=== PATIENT | female | born 1970 | race Two or more races ===

== ENCOUNTER 2022-06-14 12:45 | Inpatient (IN) | payer OTHER ==
[~2022-06-14] VITALS: Ht 152.4 cm; Wt 67.1 kg
[2022-06-14] MEDS ORDERED: PROMETRIUM200 MG PO (16:08)
[2022-06-14] MEDS ORDERED: ZYRTEC10 M3 PO (16:08)
[2022-06-14] MEDS ORDERED: SYNTHROID50 MCG PO (16:08)
[2022-06-14] MEDS ORDERED: LIPITOR20 MG PO (16:08)
[2022-06-20] MEDS ORDERED: HYDROCHLOROTH12.5 MG (09:00)
[2022-06-20] MEDS ORDERED: PHENTERMINE HCL15 MG (09:00)
[2022-06-20] MEDS ORDERED: AZELASTIN-FLUTI23 GM (09:00)
[2022-06-20] MEDS ORDERED: VITAMIN D3250 MCG (09:00)
[2022-06-20] MEDS ORDERED: NP THYROID15 MG (09:00)
[2022-06-20] MEDS ORDERED: DIETHYLPROPION75 MG (09:00)
[2022-06-20] MEDS ORDERED: TOPIRAMATE25 MG (09:00)
== END 2022-06-24 22:28 | disposition home or self-care (01) | DRG 742 ==
LOC: SURG 06-20 07:00 → O/R 06-20 07:06 → SURG 06-20 12:45 → OB/GYN 06-20 14:42 → SURH 06-20 16:40
PROVIDERS: ADMIT Specialist; ATTEND Specialist
PROC: 0UT70ZZ Resection of Bilateral Fallopian Tubes, Open Approach (ICD-10-PCS; 2022-06-20)
PROC: 0UT20ZZ Resection of Bilateral Ovaries, Open Approach (ICD-10-PCS; 2022-06-20)
PROC: 0DQ80ZZ Repair Small Intestine, Open Approach (ICD-10-PCS; 2022-06-20)
PROC: 0UT90ZZ Resection of Uterus, Open Approach (ICD-10-PCS; principal; 2022-06-20 07:00)
DX: D25.1 Intramural leiomyoma of uterus (principal); D62 Acute posthemorrhagic anemia; K91.72 Accidental puncture and laceration of a digestive system organ or structure during other procedure; N80.0 Endometriosis of uterus; D25.0 Submucous leiomyoma of uterus; N72 Inflammatory disease of cervix uteri; N84.0 Polyp of corpus uteri; N83.311 Acquired atrophy of right ovary; N80.1 Endometriosis of ovary; Z20.822 Contact with and (suspected) exposure to COVID-19; G89.18 Other acute postprocedural pain

== ENCOUNTER 2023-12-01 08:11 | Emergency (ER) | payer OTHER ==
[~2023-12-01] VITALS: Ht 152.4 cm; Wt 68.0 kg
[~2023-12-01 08:11] MED LIST: AZELASTIN-FLUTI23 GM; DIETHYLPROPION75 MG; HYDROCHLOROTH12.5 MG; LIPITOR20 MG PO; NP THYROID15 MG; PHENTERMINE HCL15 MG; PROMETRIUM200 MG PO; SYNTHROID50 MCG PO; TOPIRAMATE25 MG; VITAMIN D3250 MCG; ZYRTEC10 M3 PO
[2023-12-01] MEDS ORDERED: CRESTOR10 MG PO (08:42)
[2023-12-01] MEDS ORDERED: COZAAR25 MG PO (08:42)
[2023-12-01] MEDS ORDERED: SYNTHROID112 MCG PO (08:46)
[2023-12-01] MEDS ORDERED: 0.9 % SODIUM CHLORIDE 1,000 ML IV SCH (09:15)
[2023-12-01] MEDS ORDERED: KETOROLAC TROMETHAMINE 30 MG VIAL IV ONE (09:15)
[2023-12-01 09:45] LABS: HEMATOCRIT 38.2 % (36.0-45.00); HEMOGLOBIN 13.2 g/dL (12.0-15.00); MEAN CELL VOLUME 90.2 fL (80.00-100.00); MEAN CORPUSCULAR HEMOGLOBIN 31.3 pg (27.00-32.0); MEAN CORPUSCULAR HGB CONC 34.7 g/dl (32.0-36.0); PLATELET COUNT 283 K/uL (150-450); RED BLOOD COUNT 4.23 M/uL (4.00-6.00); RED CELL DISTRIBUTION WIDTH 12.5 % (11.5-14.5)
[2023-12-01 09:59] LABS: URINE APPEARANCE Clear; URINE BILIRRUBIN Negative (NEGATIVE); URINE BLOOD Negative; URINE COLOR Yellow; URINE GLUCOSE Negative (NEGATIVE); URINE LEUKOCYTE Negative; URINE NITRATE Negative; URINE PROTEIN Negative (NEGATIVE); URINE UROBILINOGEN 0.2 E.U./dl
[2023-12-01 10:01] LABS: URINE BACTERIA 1683.1 uL (0.0-1933); URINE EPITHELIAL CELLS 47.7 uL (0.0-38.8); URINE RBC 7.4 uL (0.0-20.8); URINE WBC 4.6 uL (0.0-23.2)
[2023-12-01 11:15] LABS: ALBUMIN 3.6 gm/dL (3.4-5.0); BILIRUBIN TOTAL 0.45 mg/dL (0.3-1.2); CREATININE SERUM 0.6 mg/dL (0.55-1.02); GFR 103.79; POTASSIUM 4.4 mEq/L (3.5-5.1); TOTAL PROTEIN 6.6 gm/dL (6.4-8.2)
[2023-12-01] MEDS ORDERED: DICLOFENAC SODI75 MG PO (11:58)
== END 2023-12-01 12:20 | disposition home or self-care (01) ==
LOC: ER 08:11
PROVIDERS: General Practice
DX: R10.9 Unspecified abdominal pain (principal)